=== PATIENT | male | born 1990 | race Asian ===

== ENCOUNTER 2017-12-04 18:09 | Emergency (ER) | payer MEDICAID, SELFPAY ==
[2017-12-04] MEDS ORDERED: Lidocaine 2% w/Epinephrine 1:200K 20 ML VIAL ONE (18:26)
[2017-12-04] MEDS ORDERED: Clindamycin 150 MG CAP ONE (18:33)
[2017-12-04] MEDS ORDERED: HYDROcodone/Acetaminophen 5/325 mg Tablet ONE (19:07)
[2017-12-04] MEDS ORDERED: Acetaminophen 325 MG TAB ONE (19:07)
[2017-12-04] MEDS ORDERED: Ibuprofen 800 MG TAB ONE (19:07)
[2017-12-04] MEDS ORDERED: Bacitracin Zinc 1 Packet ONE (19:08)
== END 2017-12-04 19:23 | disposition home or self-care (01) ==
LOC: MADERS 18:09
DX: L03.113 Cellulitis of right upper limb (principal); L02.413 Cutaneous abscess of right upper limb; F17.210 Nicotine dependence, cigarettes, uncomplicated
CPT/HCPCS: 99283